=== PATIENT | female | born 1960 | race Hispanic/Latino ===

== ENCOUNTER 2017-11-12 09:25 | Outpatient (CLI) | payer MEDICARE ==
--- NOTE | 2017-11-12 21:19 | RAD ---
LEFT KNEE FOUR VIEWS: 11/12/17 Five views were submitted for interpretation. Medial joint space narrowing and large osteophytes are present medially consistent with osteoarthritis. There may be a small loose body in the joint or two. No fracture or large joint effusion was seen. Some patellofemoral bony spurring is present to a less er degree. IMPRESSION: Moderately severe osteoarthritis, primarily involving the medial compartment. POS: HOME
== END 2017-11-12 09:26 | disposition home or self-care (01) ==
LOC: BURRAD 09:25
PROVIDERS: ATTEND Family Medicine
DX: M25.562 Pain in left knee (principal); M17.12 Unilateral primary osteoarthritis, left knee